=== PATIENT | female | born 1980 | race Asian ===

== ENCOUNTER 2017-10-13 00:11 | Inpatient (IN) | payer BC, OTHER ==
--- NOTE | 2017-10-13 01:13 | HP ---
General Information - General Information Maternal Age: 36 Grav: 4 Para: 3 SAB: 0 IEA: 0 Estimated Due Date: 10/08/17 Determined By: LMP - 40 4/7 weeks Maternal Blood Type and Rh: O Positive - Results this Serology/RPR Result: Non-Reactive Rubella Result: Immune HBsAg Result: Negative HIV Result: Negative GBS Culture Result: Negative Past Medical History Delivery History: Hx C/Section, See Records Pertinent Past Medical History: See Records Pertinent Past Surgical History: See Records Pertinent Family History: See Records - Antepartal Records Antepartal Records: Reviewed, Complicated by: - Prior with 1 Review of Systems Constitutional: Uncomfortable CV Complaint: No Respiratory: Shortness of Breath: No Gastrointestinal: No Nausea/Vomiting, Normal Bowel Movement Genitourinary: No Dysuria, No Bleeding, No Leaking Fluid Musculoskeletal: No Complaint Neurological: No Headache, No Visual Changes Movement: Normal Exam Allergies/Adverse Reactions: Allergies dipyrone Allergy (Intermediate, Verified 10/13/17 01:13) Rash Latex, Natural Rubber Adverse Reaction (Verified 10/13/17 01:13) Rash Temp 98.5 BP 130/86 p90's RR 16 - Measurements Height: 5 ft 0.63 in Weight: 153 lb Body Mass Index (BMI): 29.2 Pre- Weight: 130 lb - Exam Abdomen: No Upper Quadrant Pain Breast: Breast Exam Deferred CVA: No CVA Tenderness Extremities: No Edema Heart: Normal Rhythm/Heart Sounds HEENT: No Significant Findings Lungs: Clear Bilaterally Rectal: Rectal Exam Deferred Reflexes: DTR 2+ Thyroid: No Thyromegaly - Abdominal Exam Abdomen Exam: Non-Tender, Fundal Height Consistent with Dates - Ultrasound/Biophysical Profile Ultrasound Status: Not Done Targeted Exam Findings See L&D Outpatient Visit Provider Note for Findings: N/A Cervical Exam: 7cm Effacement: 90% Station: 0 Presenting Part: Vertex Membrane Status: Intact Bleeding/Discharge: None EFM Findings - External Monitor Findings Baseline Heart Rate: 140 External Monitor Findings: Accelerations Present Contractions: Irregular, < 45 Seconds Assessment/Plan - Reason for Visit Reason for Visit: IUP at 40 weeks prior section 1 in labor. - Obstetrical Risk Factors Obstetrical Risk Factors: Previous C/Section in Labor - Plan Plan: Active Labor - Expect - Date/Time of Admission Date of Admission: 10/13/17 Time of Admission: 01:10
[2017-10-13 01:39] LABS: ABS Basophils 0.1 10^3/ul (0-0.2); ABS Eosinophils 0.1 10^3/ul (0-0.6); ABS Lymphocytes 2.1 10^3/ul (1.0-4.8); ABS Monocytes 0.7 10^3/ul (0-0.8); ABS Neutrophils 9.4 10^3/ul (1.5-7.7); ABS Nucleated RBC 0 10^3/ul; Eosinophil % 0.5 % (0-6); Hematocrit 40 % (35-47); Hemoglobin 13.7 g/dl (12.0-16.0); Lymphocyte % 17.1 % (25-47); Mean Corpuscular HGB Conc 34 g/dl (31-36); Mean Corpuscular Hemoglobin 33 pg (27-31); Mean Corpuscular Volume 95 fL (80-97); Mean Platelet Volume 8.4 um3 (7.4-10.4); Nucleated Red Blood Cells % 0.2; Platelet Count 291 10^3/ul (150-450); Red Blood Count 4.21 10^6/ul (4.0-5.4); Red Cell Distribution Width 13 % (10.5-15); White Blood Count 12.4 10^3/ul (3.5-10.8)
[2017-10-13] MEDS ORDERED: Oxytocin in LR* 20 UNITS/1,000 ML BAG IVPB ONE (02:37)
[2017-10-13] MEDS ORDERED: Dibucaine 1% 28.35 GM TUBE PR PRN (02:44)
[2017-10-13] MEDS ORDERED: Glucose ORAL NICU* 30 ML TUBE BUCCAL PRN (02:44)
[2017-10-13] MEDS ORDERED: Glycerin ADULT SUPP PR PRN (02:44)
[2017-10-13] MEDS ORDERED: Erythromycin OPTH OINT* APPLIC OINT BOTH EYES ONE (02:44)
[2017-10-13] MEDS ORDERED: Acetaminophen TAB* 325 MG PO PRN (02:44)
[2017-10-13] MEDS ORDERED: Witch Hazel PAD* JAR TOPICAL PRN (02:44)
[2017-10-13] MEDS ORDERED: Hepatitis B Vac PF(ENGERIX-B)* 10 MCG/0.5 ML ML SYRINGE - PEDIATRIC IM ONE (02:44)
[2017-10-13] MEDS ORDERED: Phytonadione INJ* 1 MG/0.5 ML ML IM ONE (02:44)
[2017-10-13] MEDS ORDERED: Ibuprofen TAB* 600 MG PO PRN (02:44)
[2017-10-13] MEDS ORDERED: Oxytocin in LR* 20 UNITS/1,000 ML BAG IVPB SCH (03:00)
[2017-10-13] MEDS ORDERED: Misoprostol TAB* 200 MCG ONE (04:43)
[2017-10-13] MEDS ORDERED: Simethicone TAB* 80 MG TAB.CHEW PO SCH (08:30)
[2017-10-13] MEDS: Docusate CAP* 100 MG PO SCH ×3 (11:27→21:42)
[2017-10-14 06:26] LABS: ABS Basophils 0.2 10^3/ul (0-0.2); ABS Eosinophils 0.2 10^3/ul (0-0.6); ABS Lymphocytes 3.3 10^3/ul (1.0-4.8); ABS Monocytes 0.7 10^3/ul (0-0.8); ABS Neutrophils 8.2 10^3/ul (1.5-7.7); ABS Nucleated RBC 0 10^3/ul; Eosinophil % 1.4 % (0-6); Hematocrit 34 % (35-47); Hemoglobin 11.5 g/dl (12.0-16.0); Lymphocyte % 26.6 % (25-47); Mean Corpuscular HGB Conc 34 g/dl (31-36); Mean Corpuscular Hemoglobin 32 pg (27-31); Mean Corpuscular Volume 94 fL (80-97); Mean Platelet Volume 7.6 um3 (7.4-10.4); Nucleated Red Blood Cells % 0; Platelet Count 241 10^3/ul (150-450); Red Blood Count 3.55 10^6/ul (4.0-5.4); Red Cell Distribution Width 14 % (10.5-15); White Blood Count 12.6 10^3/ul (3.5-10.8)
[2017-10-14 07:55] VITALS: BP 133/70
[2017-10-14] MEDS ORDERED: Ferrous Gluconate TAB* 324 MG TAB PO SCH (09:00)
--- NOTE | 2017-10-14 09:36 | PTEDU ---
Patient Name: VIJI ESPAÑA VIJI ESPAÑA selected video: Never Ever Shake a Baby to view on 10/14/2017 at 9:35:20 AM [id number]
--- NOTE | 2017-10-14 09:51 | PTEDU ---
Patient Name: VIJI ESPAÑA VIJI ESPAÑA selected video: BBOB: Bonding Through Infant Massage to view on 10/14/2017 at 9:50:25 AM from [id number]
[2017-10-14] MEDS: Docusate CAP* 100 MG PO SCH (14:07)
== END 2017-10-14 17:20 | disposition home or self-care (01) | DRG 560 ==
LOC: MCHOBOUT 00:11 → MCHOB 00:56
PROVIDERS: ADMIT Obstetrics & Gynecology; ATTEND Obstetrics & Gynecology
PROC: 4A1HXCZ Monitoring of Products of Conception, Cardiac Rate, External Approach (ICD-10-PCS; 2017-10-12)
PROC: 10E0XZZ Delivery of Products of Conception, External Approach (ICD-10-PCS; principal; 2017-10-13)
DX: O48.0 Post-term pregnancy (principal); O34.211 Maternal care for low transverse scar from previous cesarean delivery; O62.3 Precipitate labor; Z3A.40 40 weeks gestation of pregnancy; Z37.0 Single live birth; Z88.8 Allergy status to other drugs, medicaments and biological substances; Z91.040 Latex allergy status
CPT/HCPCS: 36415; 85025; 86850; 86900; 86901; A9270-GY

== ENCOUNTER 2018-07-06 10:13 | Emergency (ER) | payer BC, OTHER ==
[2018-07-06 10:33] VITALS: BP 140/84
--- NOTE | 2018-07-06 10:43 | ED ---
Influenza-Like Illness - HPI Summary HPI Summary: This pt is a 38 y/o female presenting to [facility] c/o nasal congestion, headache, joint pain x2 days. Pt reports she also feels lightheaded. Denies fever, cough, nausea, vomiting, sore throat. She states that her older daughter began to have a fever 2 days ago. Pt presents to the ED with her and 2 children with similar symptoms. No PMHx. - History of Current Complaint Chief Complaint: EDFluSymptoms Time Seen by Provider: 07/06/18 10:15 Hx Obtained From: Patient Onset/Duration: Lasting Days, Still Present Severity: Moderate Associated Signs & Symptoms: Nasal Congestion, Headache - Allergy/Home Medications Allergies/Adverse Reactions: Allergies Allergy/AdvReac Type Severity Reaction Status Date / Time dipyrone Allergy Intermediate Rash Verified 07/06/18 10:46 Latex, Natural Rubber AdvReac Rash Verified 07/06/18 10:46 PMH/Surg Hx/FS Hx/Imm Hx Endocrine/Hematology History: Denies: Hx Diabetes Cardiovascular History: Denies: Hx Hypertension Infectious Disease History: No Infectious Disease History: Denies: Traveled Outside the [place] in Last 30 Days - Family History Family History: Father with high cholesterol. Mother with thyroid disease. - Social History Alcohol Use: None Substance Use Type: Reports: None Smoking Status (MU): Never Smoked Tobacco Review of Systems Negative: Fever ENT: Other - POS: nasal congestion Negative: Sore Throat Negative: Cough Negative: Vomiting, Nausea Positive: Arthralgia Neurological: Other - POS: lightheadedness Positive: Headache All Other Systems Reviewed And Are Negative: Yes Physical Exam - Summary Physical Exam Summary: VITAL SIGNS: Reviewed. GENERAL: Patient is a well-developed and nourished female who is lying comfortable in the stretcher. Patient is not in any acute respiratory distress. HEAD AND FACE: No signs of trauma. No ecchymosis, hematomas or skull depressions. No sinus tenderness. Positive runny nose. EYES: PERRLA, EOMI x 2, No injected conjunctiva, no nystagmus. EARS: Hearing grossly intact. Ear canals and tympanic membranes are within normal limits. MOUTH: Oropharynx within normal limits. NECK: Supple, trachea is midline, no adenopathy, no JVD, no carotid bruit, no c- spine tenderness, neck with full ROM. CHEST: Symmetric, no tenderness at palpation LUNGS: Clear to auscultation bilaterally. No wheezing or crackles. CVS: Regular rate and rhythm, S1 and S2 present, no murmurs or gallops appreciated. ABDOMEN: Soft, non-tender. No signs of distention. No rebound, no guarding, and no masses palpated. Bowel sounds are normal. EXTREMITIES: FROM in all major joints, no edema, no cyanosis or clubbing. NEURO: Alert and oriented x 3. No acute neurological deficits. Speech is normal and follows commands. SKIN: Dry and warm Triage Information Reviewed: Yes Vital Signs On Initial Exam: Initial Vitals Temp Pulse Resp BP Pulse Ox 97.0 F 94 18 140/84 97 07/06/18 10:17 07/06/18 10:17 07/06/18 10:17 07/06/18 10:17 07/06/18 10:17 Vital Signs Reviewed: Yes Diagnostics - Vital Signs Vital Signs Temp Pulse Resp BP Pulse Ox 07/06/18 10:17 97.0 F 94 18 140/84 97 - Laboratory Lab Statement: Any lab studies that have been ordered have been reviewed, and results considered in the medical decision making process. Re-Evaluation - Re-Evaluation First Eval Re-Evaluation Time: 11:14 Comment: I discussed positive flu results with the pt. Flu Symptom Course/Dx - Course Assessment/Plan: This pt is a 38 y/o female presenting to [facility] c/o nasal congestion, headache, joint pain x2 days. Pt reports she also feels lightheaded. Denies fever, cough, nausea, vomiting, sore throat. She states that her older daughter began to have a fever 2 days ago. Pt presents to the ED with her and 2 children with similar symptoms. Influenza A is positive. Therefore most of her symptoms are secondary to the flu. The patient was given a prescription for Tamiflu and she will be discharged home with follow-up from her PCP. She was instructed to increase fluid intake, Tylenol or ibuprofen for fever. She was also instructed to return to the emergency department if any of the symptoms worsen. She understands and agrees. - Diagnoses Differential Diagnosis/HQI/PQRI: Positive: Bronchitis, Broncholiolitis, Influenza, RSV, Upper Respiratory Infection Provider Diagnoses: Influenza A Discharge - Sign-Out/Discharge Documenting (check all that apply): Patient Departure - Discharge home Patient Received Moderate/Deep Sedation with Procedure: No - Discharge Plan Condition: Stable Disposition: HOME Prescriptions: Oseltamivir CAP* [Tamiflu CAP*] 75 mg PO BID #10 cap Patient Education Materials: Influenza (ED) Referrals: [facility] [Outside] [facility] REFERR[facility] [Outside] Additional Instructions: FOLLOW UP WITH YOUR PRIMARY CARE PROVIDER WITHIN 2-3 DAYS. If you don't have one please follow up with [facility] or establish one through [facility] Physician Referral. RETURN TO THE ED FOR ANY NEW OR WORSENING SYMPTOMS. - Billing Disposition and Condition Condition: STABLE Disposition: Home - Attestation Statements Document Initiated by Scribe: Yes Documenting Scribe: Kezia Christianson Provider For Whom Scribe is Documenting (Include Credential): Barney Enamorado MD Scribe Attestation: Kezia Martinez scribed for Barney Enamorado MD on 07/07/18 at 1226. Scribe Documentation Reviewed: Yes Provider Attestation: The documentation as recorded by the Kezia hassan accurately reflects the service I personally performed and the decisions made by Barney casey MD Status of Scribe Document: Viewed
[2018-07-06 10:51] LABS: Influenza A Molecular POSITIVE (Negative)
== END 2018-07-06 11:37 | disposition home or self-care (01) ==
LOC: ED 10:13
DX: J10.1 Influenza due to other identified influenza virus with other respiratory manifestations (principal); Z88.8 Allergy status to other drugs, medicaments and biological substances; Z91.040 Latex allergy status
CPT/HCPCS: 99282